=== PATIENT | female | born 1975 | race Caucasian/White ===

== ENCOUNTER 2018-07-09 19:23 | Emergency (ER) | payer SELFPAY ==
[~2018-07-09] VITALS: Ht 149.9 cm; Wt 46.3 kg
[~2018-07-09 19:23] MED LIST: Aspirin EC PO; BACTRIM DS1 TAB OR; FLEXERIL OR; INDERAL10 M1 PO; LOPRESSOR12.5 MG PO; LORTAB 5 OR; LORTAB 7.5 OR; METOPROL TAR25 MG PO; NAPROSYN500 MG OR; NITROGLYCER0.4 MG SL; NO HOME MEDS; NO MEDS; ULTRAM50 M1 OR; ULTRAM50 M1 PO
[2018-07-09] MEDS ORDERED: CIPROFLOXACN0.3 % OU (19:45)
[2018-07-09 19:50] VITALS: BP 105/69
== END 2018-07-09 19:50 | disposition home or self-care (01) | DRG 125 ==
LOC: ED 19:23
DX: H10.33 Unspecified acute conjunctivitis, bilateral (principal); R50.9 Fever, unspecified; F17.210 Nicotine dependence, cigarettes, uncomplicated

== ENCOUNTER 2018-11-02 23:09 | Emergency (ER) | payer SELFPAY ==
[~2018-11-02] VITALS: Ht 149.9 cm; Wt 44.4 kg
[~2018-11-02 23:09] MED LIST changes: +CIPROFLOXACN0.3 % OU
[2018-11-02] MEDS ORDERED: ASPIRIN81 MG PO (23:22)
[2018-11-02] MEDS ORDERED: AMOXICILLIN500 MG PO (23:29)
[2018-11-02 23:35] VITALS: BP 107/74
== END 2018-11-02 23:35 | disposition home or self-care (01) | DRG 153 ==
LOC: ED 23:09
DX: J03.90 Acute tonsillitis, unspecified (principal); F17.200 Nicotine dependence, unspecified, uncomplicated

== ENCOUNTER 2019-01-09 07:50 | Emergency (ER) | payer SELFPAY ==
[~2019-01-09] VITALS: Ht 149.9 cm; Wt 47.7 kg
[~2019-01-09 07:50] MED LIST changes: +AMOXICILLIN500 MG PO; +ASPIRIN81 MG PO
[2019-01-09 09:04] VITALS: BP 97/54
== END 2019-01-09 09:10 | disposition home or self-care (01) | DRG 605 ==
LOC: ED 07:50
PROC: 2W3CX1Z Immobilization of Right Lower Arm using Splint (ICD-10-PCS; principal; 2019-01-09)
DX: S60.211A Contusion of right wrist, initial encounter (principal); F17.210 Nicotine dependence, cigarettes, uncomplicated; W22.09XA Striking against other stationary object, initial encounter; Y92.009 Unspecified place in unspecified non-institutional (private) residence as the place of occurrence of the external cause